=== PATIENT | female | born 1990 | race Caucasian/White ===

== ENCOUNTER 2021-03-11 14:43 | Emergency (ER) | payer OTHER ==
--- NOTE | 2021-03-11 15:40 | EDM.PDOC ---
ED HPI GENERAL MEDICAL PROBLEM - General Chief Complaint: General Stated Complaint: Sore Throat Time Seen by Provider: 03/11/21 15:30 Source of Information: Reports: Patient History Limitations: Reports: No Limitations - History of Present Illness INITIAL COMMENTS - FREE TEXT/NARRATIVE: Funmilayo is a 31 year old female who presents to ER with complaints of a 4 day history of sinus congestion, sore throat and cough. No fevers. Denies shortness of breath. No wheezing. was diagnosed with covid this am. She has had the covid vaccine. Onset: Gradual Duration: Day(s):, Constant Location: Reports: Head, Chest Quality: Reports: Ache Severity: Mild Improves with: Reports: Medication Associated Symptoms: Reports: Cough. Denies: Confusion, Chest Pain, cough w sputum, Fever/Chills, Headaches, Loss of Appetite, Nausea/Vomiting, Shortness of Breath Treatments [employer]: Reports: Acetaminophen Past Medical History - Past Health History Medical/Surgical History: Denies Medical/Surgical History Social & Family History - Tobacco Use Tobacco Use Status *Q: Never Tobacco User Second Hand Smoke Exposure: No ED ROS GENERAL - Review of Systems Review Of Systems: See Below Constitutional: Denies: Fever, Chills, Malaise, Weakness, Fatigue, Decreased Appetite HEENT: Reports: Rhinitis, Sinus Problem, Throat Pain. Denies: Ear Pain Respiratory: Reports: Cough. Denies: Shortness of Breath Cardiovascular: Denies: Chest Pain, Edema, Lightheadedness Endocrine: Denies: Fatigue GI/Abdominal: Denies: Abdominal Pain, Constipation, Diarrhea, Nausea, Vomiting : Reports: No Symptoms Musculoskeletal: Reports: No Symptoms Skin: Reports: No Symptoms Neurological: Reports: No Symptoms ED EXAM, GENERAL - Physical Exam Exam: See Below Exam Limited By: No Limitations General Appearance: Alert, WD/WN, No Apparent Distress Ears: Normal External Exam, Normal TMs Nose: Normal Inspection, Normal Mucosa, No Blood Throat/Mouth: Normal Inspection, Normal Oropharynx Head: Normocephalic Neck: Normal Inspection, Supple, Non-Tender Respiratory/Chest: No Respiratory Distress, Lungs Clear, Normal Breath Sounds Cardiovascular: Regular Rate, Rhythm Extremities: Normal Inspection, No Pedal Edema Neurological: Alert, Oriented Skin Exam: Warm, Dry Course - Vital Signs Last Recorded V/S: Last Vital Signs Temp 98.3 F 03/11/21 15:27 Pulse 76 03/11/21 15:27 Resp 18 03/11/21 15:27 BP 113/75 03/11/21 15:27 Pulse Ox 98 03/11/21 15:27 - Orders/Labs/Meds Labs: Laboratory Tests 03/11/21 Range/Units 15:00 SARS CoV-2 RNA Rapid ROSARIO Negative (NEGATIVE) - Re-Assessments/Exams Free Text/Narrative Re-Assessment/Exam: 03/11/21 15:56 covid negative Departure - Departure Time of Disposition: 15:56 Disposition: Home, Self-Care 01 Condition: Good Clinical Impression: URI (upper respiratory infection) - Discharge Information *PRESCRIPTION DRUG MONITORING PROGRAM REVIEWED*: No *COPY OF PRESCRIPTION DRUG MONITORING REPORT IN PATIENT LINDA: No Instructions: Viral Respiratory Infection, [id number] Referrals: PCP,None [Primary Care Provider] - Forms: ED Department Discharge Additional Instructions: 1. Push fluids 2. Alternate tylenol with ibuprofen for fever or discomfort 3. Decongestants as directed 4. Follow up if changes or persisting concerns. Sepsis Event Note (ED) - Evaluation Sepsis Screening Result: No Definite Risk - Focused Exam Vital Signs: Vital Signs Temp Pulse Resp BP Pulse Ox 03/11/21 15:27 98.3 F 76 18 113/75 98
== END 2021-03-11 16:40 | disposition home or self-care (01) ==
LOC: CC.ED 14:43
DX: J06.9 Acute upper respiratory infection, unspecified (principal); Z20.822 Contact with and (suspected) exposure to COVID-19
CPT/HCPCS: 99283; U0002